=== PATIENT | female | born 1955 | race Caucasian/White ===

== ENCOUNTER 2019-11-01 18:15 | Emergency (ER) | payer MEDICAID ==
[~2019-11-01] VITALS: Ht 160 cm; Wt 97.5 kg
[~2019-11-01 18:15] MED LIST: LISI10TA11 PO; METF500T PO; [UNRECOGNIZED DRUG - REMARK]
[2019-11-01 18:24] VITALS: BP 155/108
--- NOTE | 2019-11-01 18:28 | NUR ---
PT C/O Left thigh pain the last couple days. Pt has sharp stabbing pain on the anterior left thigh every 30 minutes and each episode lasts couple seconds. Pain level 10/10 when it comes. Pt has right arm restrictions. VSS; PATIENT POSITIONED FOR COMFORT; HOB ELEVATED; BEDRAILS UP X1; BED DOWN. ER MD MADE AWARE OF PT STATUS.
--- NOTE | 2019-11-01 19:15 | NUR ---
RECEIVED REPORT FROM TAIWO TALLEY. ASSUMED CARE AT THIS TIME. PT LYING SUPINE IN BED. FAMILY AT BEDSIDE. WILL CONTINUE TO MONITOR.
--- NOTE | 2019-11-01 20:08 | NUR ---
ULTRASOUND AT BEDSIDE.
[2019-11-01 20:57] VITALS: BP 179/68
== END 2019-11-01 20:57 | disposition home or self-care (01) ==
LOC: MED 18:15
DX: S76.912A Strain of unspecified muscles, fascia and tendons at thigh level, left thigh, initial encounter (principal); E11.9 Type 2 diabetes mellitus without complications; I10 Essential (primary) hypertension; Z79.899 Other long term (current) drug therapy; Z79.84 Long term (current) use of oral hypoglycemic drugs; Z85.9 Personal history of malignant neoplasm, unspecified; X58.XXXA Exposure to other specified factors, initial encounter; Y93.89 Activity, other specified; Y92.89 Other specified places as the place of occurrence of the external cause; Y99.8 Other external cause status
CPT/HCPCS: 93971; 99284; Q0092